=== PATIENT | male | born 1990 | race Hispanic/Latino ===

== ENCOUNTER → 2025-07-11 | Day surgery (SDC) | payer OTHER ==
[~2025-07-11] VITALS: Ht 175.3 cm; Wt 100.0 kg
[~2025-07-11] MED LIST: HOME MED LIST COMPLETE! XX SCH; LIDOCAINE 2% 100 MG/5 ML SDV (FOR ANES.) As Ordered ONE; LR 1,000 ML IV SCH; MEPERIDINE 25 MG/ML 1 ML VIAL As Ordered ONE; MIDAZOLAM INJ 2 MG/2 ML VIAL As Ordered ONE; ONDANSETRON 4MG/2ML VIAL As Ordered ONE; ROCURONIUM BROMIDE 50MG/5ML VIAL As Ordered ONE; SUCCINYLCHOLINE 100MG/5ML SYRINGE As Ordered ONE; dexAMETHasone 4 MG/ML 1 ML VIAL As Ordered ONE
[2025-07-11] MEDS: MORPHINE 4 MG/ML 1 ML VIAL IV PRN (17:56)
[2025-07-11] MEDS: ONDANSETRON 4MG/2ML VIAL IV ONE (17:57)
[2025-07-11] MEDS: GLUCAGON INJ 1 MG VIAL IV STA (18:01)
[2025-07-11 18:11] LABS: BASO # 0.0 10^3/uL (0.0-0.2); BASO % 0.4 % (0.0-1.0); EOS # 0.7 10^3/uL (0.0-0.5); EOS % 8.3 % (0.0-3.0); LYMPH # 2.2 10^3/uL (1.5-5.0); LYMPH % 26.5 % (24.0-44.0); MONO # 1.0 10^3/uL (0.0-0.8); MONO % 11.5 % (2.0-8.0); NEUTROPHILS # 4.4 10^3/uL (1.5-8.5); NEUTROPHILS % 52.9 % (36.0-66.0); PLATELET COUNT, AUTOMATED 256 10^3/uL (150-450)
[2025-07-11 18:37] LABS: INR 1.0
[2025-07-11 18:41] LABS: CALCIUM LEVEL 9.1 MG/DL (8.5-10.1); CARBON DIOXIDE LEVEL 30 MMOL/L (20-31); CHLORIDE LEVEL 102 MMOL/L (98-107); CREATININE FOR GFR 0.85 MG/DL (0.70-1.30); GLOMERULAR FILTRATION RATE > 90.0 (>60); POTASSIUM SERUM 4.3 MMOL/L (3.5-5.1); SODIUM LEVEL 141 MMOL/L (136-145)
[2025-07-11] MEDS: MEPERIDINE 25 MG/ML 1 ML VIAL IV PRN (20:30)
[2025-07-11 21:48] VITALS: TEMP 97.5
[2025-07-11 22:03] VITALS: BP 127/56; O2SAT 95
== END | disposition home or self-care (01) ==
LOC: M ED 18:26 → M SDC 19:24
PROVIDERS: ATTEND Internal Medicine Gastroenterology
DX: T18.120A Food in esophagus causing compression of trachea, initial encounter (principal); Y92.9 Unspecified place or not applicable
CPT/HCPCS: 43247; 70490; 71250; 80048; 85025; 85610; 85730; 96374; 96375; 96376; 99284; J0330; J1100; J1610; J2175; J2250; J2405; J3010